=== PATIENT | female | born 2000 | race American Indian/Alaskan Native ===

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

== ENCOUNTER 2018-09-02 17:53 | Emergency (ER) | payer BC ==
[2018-09-02 18:57] VITALS: BP 132/84
[2018-09-02] MEDS ORDERED: IBUPROFEN PO ONE (22:14)
[2018-09-02] MEDS ORDERED: KEFLEX PO ONE (22:14)
--- NOTE | 2018-09-02 22:19 | Emergency Department Report ---
- General Chief complaint: Skin/Abscess/Foreign Body Stated complaint: RT ARMPIT ABCESS/PAIN Time Seen by Provider: 09/02/18 21:54 Source: patient Mode of arrival: Ambulatory Limitations: No Limitations - History of Present Illness Initial comments: 18 year old -[place] female presents to the ER for a ball under her right arm times one week. Patient reports that is painful and has not taken any pain medication since yesterday. Patient reports that it was tender before she has shaved her right armpit. Patient reports she is not allergic to any medications. Patient reports no past medical history takes no medications on a daily basis. complaint: abscess/boil -: week(s) (1) Severity scale (0 -10): 8 Consistency: constant Improves with: medication Worsens with: palpation Associated symptoms: denies other symptoms Treatments Prior to Arrival: none - Related Data Previous Rx's Medication Instructions Recorded Last Taken Type Ibuprofen [Motrin 800 MG tab] 800 mg PO Q8HR PRN #30 tablet 09/02/18 Unknown Rx cephALEXin [Keflex] 500 mg PO Q12HR #20 capsule 09/02/18 Unknown Rx Allergies Allergy/AdvReac Type Severity Reaction Status Date / Time No Known Allergies Allergy Unverified 10/10/16 17:40 Abscess Boil HPI - HPI Chief Complaint: Skin/Abscess/Foreign Body Stated Complaint: RT ARMPIT ABCESS/PAIN Time Seen by Provider: 09/02/18 21:54 Home Medications: Previous Rx's Medication Instructions Recorded Last Taken Type Ibuprofen [Motrin 800 MG tab] 800 mg PO Q8HR PRN #30 tablet 09/02/18 Unknown Rx cephALEXin [Keflex] 500 mg PO Q12HR #20 capsule 09/02/18 Unknown Rx Allergies/Adverse Reactions: Allergies Allergy/AdvReac Type Severity Reaction Status Date / Time No Known Allergies Allergy Unverified 10/10/16 17:40 ED Review of Systems ROS: Stated complaint: RT ARMPIT ABCESS/PAIN Other details as noted in HPI Comment: All other systems reviewed and negative Constitutional: denies: chills, fever Eyes: denies: eye pain, eye discharge, vision change ENT: denies: ear pain, throat pain Skin: lesions (right axillary) ED Past Medical Hx - Past Medical History Previous Medical History?: No - Surgical History Past Surgical History?: No - Social History Smoking Status: Never Smoker Substance Use Type: None - Medications Home Medications: Home Medications Medication Instructions Recorded Confirmed Last Taken Type Ibuprofen [Motrin 800 MG tab] 800 mg PO Q8HR PRN #30 tablet 09/02/18 Unknown Rx cephALEXin [Keflex] 500 mg PO Q12HR #20 capsule 09/02/18 Unknown Rx ED Physical Exam - General Limitations: No Limitations General appearance: alert, in no apparent distress - Head Head exam: Present: atraumatic, normocephalic - Eye Eye exam: Present: normal appearance - ENT ENT exam: Present: mucous membranes moist - Neck Neck exam: Present: normal inspection - Neurological Exam Neurological exam: Present: alert, oriented X3 - Expanded Skin Exam Expanded Type of lesion: Present: abscess Distribution of rash: RUE Description of rash: Present: tenderness, indurated. Absent: erythematous, fluctuant ED Course Vital Signs 09/02/18 18:55 Temperature 98.7 F Pulse Rate 100 H Respiratory 16 Rate Blood Pressure 132/84 O2 Sat by Pulse 100 Oximetry ED Medical Decision Making - Medical Decision Making 18-year-old female comes in for a boil under her right axillary. Discussed the patient it is not fluctuant enough for me to incise and drain. Discussed the patient IS on antibiotics pain medication and she is to use warm compresses 2-3 times a day. Patient verbalized understanding to be given ibuprofen and Keflex before discharge. Critical care attestation.: If time is entered above; I have spent that time in minutes in the direct care of this critically ill patient, excluding procedure time. ED Disposition Clinical Impression: Boil, axilla Qualifiers: Laterality: right Qualified Code(s): L02.421 - Furuncle of right axilla Disposition: DC-01 TO HOME OR SELFCARE Is pt being admited?: No Does the pt Need Aspirin: No Condition: Stable Instructions: Abscess (ED) Additional Instructions: Complete antibiotics as prescribed. Pain medication as needed. Increase her water intake while taking pain medication. Please apply warm compresses to the right underarm 2-3 times a day. Follow up with her primary care provider if his symptoms persist or gets worse. Prescriptions: cephALEXin [Keflex] 500 mg PO Q12HR #20 capsule Ibuprofen [Motrin 800 MG tab] 800 mg PO Q8HR PRN #30 tablet PRN Reason: Pain , Severe (7-10) Referrals: NATALIA RANDALL MD [Primary Care Provider] - 3-5 Days
== END 2018-09-02 22:35 | disposition home or self-care (01) ==
LOC: ED 17:53
DX: L02.421 Furuncle of right axilla (principal)
CPT/HCPCS: 99282